=== PATIENT | female | born 1950 | race Caucasian/White ===

== ENCOUNTER 2018-02-01 07:13 | Day surgery (SDC) | payer MEDICARE, OTHER | END 2018-02-01 22:43 | disposition home or self-care (01) | LOC: ORSCMMR 07:13 → ORD 08:30 → ORSCMMR 22:43 | PROVIDERS: Internal Medicine Gastroenterology | PROC: 0DBN8ZX Excision of Sigmoid Colon, Via Natural or Artificial Opening Endoscopic, Diagnostic (ICD-10-PCS; principal; 2018-02-01 08:30) | PROC: 0DBM8ZX Excision of Descending Colon, Via Natural or Artificial Opening Endoscopic, Diagnostic (ICD-10-PCS; principal; 2018-02-01 08:30) | DX: Z12.11 Encounter for screening for malignant neoplasm of colon (principal); D12.4 Benign neoplasm of descending colon; D12.5 Benign neoplasm of sigmoid colon; K57.30 Diverticulosis of large intestine without perforation or abscess without bleeding; Z79.82 Long term (current) use of aspirin | CPT/HCPCS: 88305; J7030 ==

== ENCOUNTER → 2018-04-05 | Outpatient (CLI) | payer MEDICARE, OTHER | END | disposition home or self-care (01) | LOC: LAB SHORT 11:22 → LAB 11:22 | DX: R31.9 Hematuria, unspecified (principal) | CPT/HCPCS: 87077; 87086; 87186 ==

== ENCOUNTER → 2018-08-31 | Outpatient (CLI) | payer MEDICARE, OTHER | END | disposition home or self-care (01) | LOC: PLD 12:23 → LAB SHORT 12:23 | DX: L57.0 Actinic keratosis (principal) | CPT/HCPCS: 88305 ==

== ENCOUNTER → 2020-12-10 | Outpatient (CLI) | payer OTHER ==
[~2020-12-10] MED LIST: Cipro500 MG PO; Flagyl500 MG PO; Norco 5-325 Ta1 EACH PO
== END | disposition home or self-care (01) ==
LOC: PLD 12:39 → LAB SHORT 12:39
DX: D48.5 Neoplasm of uncertain behavior of skin (principal)
CPT/HCPCS: 88305

== ENCOUNTER → 2021-10-03 | Outpatient (CLI) | payer OTHER ==
[2021-10-03 14:04] LABS: Stool Occult Bld Immuno 1 Negative (NEGATIVE)
== END ==
LOC: LAB SHORT 09:21
PROVIDERS: Family Medicine
DX: Z12.11 Encounter for screening for malignant neoplasm of colon (principal)
CPT/HCPCS: G0328

== ENCOUNTER 2022-04-14 13:10 | Day surgery (SDC) | payer OTHER ==
[~2022-04-14] VITALS: Ht 162.6 cm; Wt 87.7 kg
[2022-04-14] MEDS ORDERED: VITAMIN D31000 UNI1 PO (14:39)
[2022-04-14] MEDS ORDERED: ELIQUIS5 M2 PO (14:39)
[2022-04-14] MEDS ORDERED: C COMPLEX1000 M1 PO (14:39)
[2022-04-14] MEDS ORDERED: VITAMIN B122500 MC1 PO (14:40)
[2022-04-14] MEDS ORDERED: MELA3 PO (14:40)
[2022-04-14] MEDS ORDERED: METO25ER PO (14:41)
[2022-04-14] MEDS ORDERED: Methocarbamol500 MG PO (14:41)
[2022-04-14] MEDS ORDERED: DHEA25 M1 PO (14:42)
[2022-04-14] MEDS ORDERED: ZINC50 M3 PO (14:42)
[2022-04-14] MEDS ORDERED: Amiodarone HCl200 MG PO (14:42)
--- NOTE | 2022-04-14 15:48 | NUR ---
PT ALERT AND TALKING WITH STAFF. EKG SHOWS NSR. VS WNL. PT STATES SHE FEELS GOOD.
--- NOTE | 2022-04-14 16:07 | NUR ---
PT DRESSED PER SELF, PRESENT. SALINE LOCK REMOVED WITH CATHETER INTACT. DISCHARGE REVIEWED WITH PT AND , BOTH VERBALIZE UNDERSTANDING OF INSTRUCTIONS. PT TO PRIVATE VEHICLE PER W/C WITH ONE STAFF.
== END 2022-04-15 00:01 | disposition home or self-care (01) ==
LOC: MHTC 13:10 → ORD 14:45 → ORSCSDS 14:45 → MHTC 04-15 00:01
DX: I48.20 Chronic atrial fibrillation, unspecified (principal); I10 Essential (primary) hypertension; Z88.1 Allergy status to other antibiotic agents; Z88.8 Allergy status to other drugs, medicaments and biological substances; Z88.2 Allergy status to sulfonamides; Z79.01 Long term (current) use of anticoagulants; Z79.899 Other long term (current) drug therapy
CPT/HCPCS: 92960; 93005; 93010; J2704; J7030